=== PATIENT | female | born 1985 | race Caucasian/White ===

== ENCOUNTER 2024-01-01 09:20 | Emergency (ER) | payer OTHER, SELFPAY ==
[2024-01-01 09:28] VITALS: BP 127/64; PULSE 66; RESP 20; TEMP 37.1; O2SAT 100
[2024-01-01 09:38] VITALS: BP 127/64; PULSE 66; RESP 20; TEMP 37.1; O2SAT 100
--- NOTE | 2024-01-01 09:39 | ED.DENTAL ---
HPI - Dental/Oral General Chief complaint: Dental/Oral Stated complaint: dental pain Time Seen by Provider: 01/01/24 09:39 Source: patient, RN notes reviewed and old records reviewed Mode of arrival: ambulatory Limitations: no limitations History of Present Illness HPI Narrative: 38 year old female who presents to [facility] care with complaints of dental pain to right upper molar for the past 2 weeks with increase pain to tooth for the past 2 days. Patient reports that she has been taking Tylenol and Ibuprofen for her discomfort. Patient reports that she has a dental appointment set up on the 08 of January. MD Complaint: tooth pain Location: Tooth # (5) Onset (ago): week(s) (2 weeks with increase pain in past 2 days) Severity scale (1-10): 6 Treatment prior to arrival: other (Tylenol or Ibuprofen) Related Data Home Medications Medication Instructions Recorded Confirmed sertraline 100 mg tablet mg 01/01/24 sumatriptan succinate 50 mg tablet mg PO 01/01/24 Allergies Allergy/AdvReac Type Severity Reaction Status Date / Time No Known Allergies Allergy Verified 01/01/24 09:38 Review of Systems Review of Systems: CONSTITUTIONAL: Denies fever, chills, or sweats. ENT: Denies rhinorrhea, congestion, sore throat, or otalgia. Reports dental pain to #5 tooth CARDIOVASCULAR: Denies chest pain, palpitations, or edema. RESPIRATORY: Denies cough or dyspnea. SKIN: Denies rash or itching. MUSCULOSKELETAL: Denies myalgia. NEUROLOGIC: Denies headache All systems reviewed & are unremarkable except as noted in HPI and below PMFSH Past Medical History Medical History (Updated 01/01/24 @ 17:49 by Lois Green NP) Anxiety and depression Hx of migraines Multiple food allergies Social History Social History (Updated 01/01/24 @ 17:51 by Lois Green NP) Smoking status: Never smoker Alcohol intake: current Alcohol use details: rare social Substance use type: does not use Living arrangements: with family Gender identity (if verbalized by the patient): Female Comments At time of signature, agree with nursing past medical, surgical, social and family history. There is no relevant family history pertinent to the presenting complaint Exam Narrative: GENERAL: Well-appearing, well-nourished, and in no acute distress. HEAD: Normocephalic, atraumatic. EYES: PERRLA and EOMI. ENT: Nares clear, no rhinorrhea or epistaxis. Mucous membranes moist. Dental pain #5 tooth with noted careies with some redness around gum, no trismus or any Rich angina noted. NECK: Supple. no lymphadenopathy CHEST: Clear to auscultation. No respiratory distress.SAO2 100% on room air HEART: Regular rate and rhythm. No murmur heard. Normal peripheral pulses. SKIN: Warm, dry, no rash. NEURO: No focal deficits. Alert and oriented x3. Course Course Emergency Course: Patient is aware of diagnosis, understands and agrees to treatment plan. Anticipatory guidance given. Patient agrees to follow-up as directed and is aware of reasons to seek care at the emergency department. Portions of this record may have been created with voice recognition software Level of Care: Express Care Visit Vital Signs Vital signs: Vital Signs Temperature 37.1 C 01/01/24 09:28 Pulse Rate 66 01/01/24 09:28 Respiratory Rate 20 01/01/24 09:28 Blood Pressure 127/64 01/01/24 09:28 Pulse Oximetry 100 01/01/24 09:28 Oxygen Delivery Room Air 01/01/24 09:28 Temperature 37.1 C 01/01/24 09:38 Pulse Rate 66 01/01/24 09:38 Respiratory Rate 20 01/01/24 09:38 Blood Pressure 127/64 01/01/24 09:38 Pulse Oximetry 100 01/01/24 09:38 Oxygen Delivery Room Air 01/01/24 09:38 Reviewed MDM - Dental/Oral MDM Narrative Medical decision making narrative: Patients pain and complaint coupled with physical findings are consistent with dentalgia. There are no focal signs of space occupying lesions that are compromising to the
== END 2024-01-01 10:01 | disposition home or self-care (01) ==
PROVIDERS: Emergency Provider Registered Nurse; PCP Internal Medicine
DX: K02.9 Dental caries, unspecified (principal)
CPT/HCPCS: 99213; G0463

== ENCOUNTER 2024-07-08 10:40 | Emergency (ER) | payer OTHER, SELFPAY ==
[2024-07-08 10:44] VITALS: BP 132/71; PULSE 81; RESP 20; TEMP 36.8; O2SAT 98
--- NOTE | 2024-07-08 11:16 | ED_ITS ---
HPI - URI/Sore Throat General Chief Complaint: Upper Respiratory Infection Stated Complaint: positive flu A/needs work note Time Seen by Provider: 07/08/24 11:10 Source: patient, RN notes reviewed and old records reviewed Mode of arrival: ambulatory Limitations: no limitations History of Present Illness HPI Narrative: 38 year old female accompanied by spouse presents to express care with complaints of congestion, body aches, sore throat, cough and fevers which started yesterday. Patient reports that significant other tested positive for COVID on Monday. Patient reports that she has been running a fever since yesterday around 100F. Patient reports that she has been taking Tylenol, DayQuil and NyQuil and also using Robitussin cough syrup for her symptoms. MD elicited complaint: fever, cough, sore throat, rhinorrhea, nasal congestion and other (body aches) Onset (ago): day(s) (Monday) Consistency: constant Severity: moderate Pain scale (0-10): 4 Description of mucous: clear Able to tolerate fluids by mouth: Yes Treatments prior to arrival: acetaminophen and other (DayQuil,NyQuil, Robitussin) Related Data Home Medications ?Medication ?Instructions ?Recorded ?Confirmed ?Last Taken ?Type sertraline 100 mg tablet mg 07/08/24 Unknown History Allergies Allergy/AdvReac Type Severity Reaction Status Date / Time No Known Allergies Allergy Verified 07/08/24 11:01 Review of Systems Review of Systems: CONSTITUTIONAL: Reports malaise, chills, sweats, or fever. EYES: Denies visual changes, redness, or discharge. ENT: Reports rhinorrhea, congestion, sinus pain,no otalgia and sore throat. CARDIOVASCULAR: Denies chest pain, palpitations, or edema. RESPIRATORY: Reports cough.? Denies dyspnea. GASTROINTESTINAL: Denies abdominal pain, nausea, vomiting, diarrhea SKIN: Denies rash or itching. MUSCULOSKELETAL: Reports myalgia. NEUROLOGIC: Denies headache. All systems reviewed & are unremarkable except as noted in HPI and below PMFSH Past Medical History Medical History (Updated 07/08/24 @ 12:09 by Lois Green NP) PTSD (post-traumatic stress disorder) Multiple food allergies Hx of migraines Anxiety and depression Social History Social History (Updated 01/01/24 @ 17:51 by Lois Green NP) Smoking status: Never smoker Alcohol intake: current Alcohol use details: rare social Substance use type: does not use Living arrangements: with family Gender identity (if verbalized by the patient): Female Comments At time of signature, agree with nursing past medical, surgical, social and family history. There is no relevant family history pertinent to the presenting complaint Exam Narrative: GENERAL: Well-appearing, well-nourished, and in no acute distress. HEAD: Normocephalic EYES: PERRLA, conjunctivae clear ENT: Nares clear, turbinates edematous and erythematous, clear discharge sinus pressure. Mucous membranes moist. TM pearly [place] with dull light reflex bilaterally; no tragal tenderness. Oropharynx erythematous without lesions. Tonsils not enlarged and without exudate, no drooling, no hoarseness, no trismus, uvula midline.post nasal drainage noted NECK: Supple. No lymphadenopathy CHEST: Clear to auscultation, breath sounds equal. No wheezing, rhonchi, rales, or stridor. No respiratory distress, speaks in full sentences., cough noted SAO2 98% on room air HEART: Regular rate and rhythm. No murmur heard. SKIN: Warm, dry, no rash. NEURO: Alert and oriented x3. PSYCH: Normal mood and affect Course Course Emergency Course: Patient is aware of diagnosis, understands and agrees to treatment plan.? Anticipatory guidance given.? Patient agrees to follow-up as directed and is aware of reasons to seek care at the emergency department. Portions of this record may have been created with voice recognition software Level of Care: Express Care Visit Vital Signs Vital signs: Vital Signs Temperature 36.8 C 07/08/24 10:44 Pulse Rate 81 07/08/24 10:44 Respiratory Rate 20 07/08/24 10:44 Blood Pressure 132/71 07/08/24 10:44 Pulse Oximetry 98 07/08/24 10:44 Oxygen Delivery Room Air 07/08/24 10:44 Temperature 36.8 C 07/08/24 10:44 Pulse Rate 81 07/08/24 10:44 Respiratory Rate 20 07/08/24 10:44 Blood Pressure 132/71 07/08/24 10:44 Pulse Oximetry 98 07/08/24 10:44 Oxygen Delivery Room Air 07/08/24 10:44 Reviewed MDM - URI/Sore Throat MDM Narrative Medical decision making narrative: Differential diagnosis considered: Gipson virus, strep pharyngitis, allergic rhinitis, upper respiratory tract infection, sinusitis, rhinosinusitis, elvis opharyngitis. viral pharyngitis, otitis media, otitis externa, pneumonia, bronchitis, viral cough syndrome, viral syndrome, and influenza.? Exam findings show no acute concerns or changes; patient is non-toxic appearing and is in no distress.? Patient is appropriate for outpatient treatment and follow-up. Differential Diagnosis Differential diagnosis: Likely upper respiratory infection, viral infection, influenza, pharyngitis and other (strep pharyngitis, COVID) Medical Records Attestation: I reviewed the patient's medical records. Lab Data Attestation: I reviewed the patient's lab results. Lab results narrative: Influenza A negative, Influenza B negative, COVID antigen negative, streps creen negative, culture sent Labs: Lab Results 07/08/24 Range/Units 11:00 POC Influenza A Ag Negative (Negative) POC Influenza B Ag Negative (Negative) POC SARS CoV-2 Ag Negative (Negative) POC Grp A Strep Screen Negative (Negative) reviewed Critical Care Time Critical Care Time Critical Care Time: No Discharge Plan Discharge Clinical Impression: Flu-like symptoms Patient Disposition: Home, Self-Care Condition: Stable Instructions: Influenza (ED) Additional Instructions: Increase fluids especially juices and water [id number] cough and cold medicine of your choice for your symptoms Tylenol or ibuprofen for any fever pain Continue your inhaler/nebulizer as directed heat to the face 20-30 minutes 4-6 times a day for pain Salt water gargles, throat lozenges or throat sprays as desired If your symptoms persist, change or worsen significantly before you can contact your personal physician then please, without delay, go to the emergency department for further evaluation. Follow-up with PCP in 7-10 days or sooner if needed Follow up with PCP soon in regards to your blood pressure which is elevated above threshold for referral. Blood pressure above 120/80 may indicate pre- hypertension. 132/71 Must be fever free for 24 hours without use of Tylenol or ibuprofen before you can return to work Recommend you retest for flu and COVID tomorrow Patient Language: [place]i Prescriptions: New (DME) [employer] Tyfast [id number] Test Kit See Rx Instructions .Route Qty: 1 0RF Rx Instructions: As directed No Action sertraline 100 mg tablet Follow-up/Referrals: Avtar Dos Santos MD [Primary Care Provider] - Stand Alone Forms: Work/School Release IP Time of Disposition: 11:37 Quality [place] Coma Scale Eyes: Open Verbal: Oriented and Alert Motor: Follows Commands [place] Coma Total Score: 15
[2024-07-08 11:27] LABS: EDCOVIDSCREEN Negative (Negative); EDINFLUASCREEN Negative (Negative); EDINFLUBSCREEN Negative (Negative); EDSTREPNEGPOS1 Negative (Negative)
== END 2024-07-08 11:40 | disposition home or self-care (01) ==
PROVIDERS: Emergency Provider Registered Nurse; PCP Internal Medicine
DX: J11.1 Influenza due to unidentified influenza virus with other respiratory manifestations (principal); Z20.822 Contact with and (suspected) exposure to COVID-19
CPT/HCPCS: 87081; 87426; 87804; 87880; 99213; G0463